=== PATIENT | female | born 1975 | race Caucasian/White ===

== ENCOUNTER 2017-10-14 20:20 | Emergency (ER) | payer OTHER ==
[~2017-10-14] VITALS: Ht 165.1 cm; Wt 68.5 kg
[~2017-10-14 20:20] MED LIST: BENZ100C84 PO; CLON0.5T3 PO; LEVO1TAB33 PO; Ventolin HFA INH
[2017-10-14 20:22] VITALS: TEMP 36.4; Ht 165.1 cm; Wt 68.5 kg
[2017-10-14 20:43] VITALS: O2SAT 100
[2017-10-14] MEDS ORDERED: DiphenhydrAMINE HCL 50 MG/ML VIAL IV STA (21:10)
[2017-10-14] MEDS ORDERED: FAMOTIDINE 20MG/5ML IV PUSH IV STA (21:10)
[2017-10-14] MEDS ORDERED: DEXAMETHASONE **PF** INJ 10 MG/ML VIAL IV ONE (21:15)
--- NOTE | 2017-10-14 21:17 | EMERGENCY ROOM VISIT NOTE ---
History Report prepared by Jaison: Shaun Chilel Under the Supervision of: Dr. Stephanie Manzano M.D. First contact with patient: 20:32 Chief Complaint: ALLERGIC REACTION Stated Complaint: ALLERGIC REACTION History of Present Illness The patient is a 41 year old female who presents to the Emergency Room with complaints of a constant allergic reaction starting earlier today. The patient states that she has been having some lip swelling while working earlier at [employer]. She notes that tonight was her third shift. She states that her first shift she had hives from her abdomen down, though they went away after taking Benadryl. The second shift she had swollen and itchy eyes. Today during her third shift she also had some tingling in her lips, a scratchy throat, and itchiness on the top of her head. The patient states that she has no history of allergic reactions to medications, foods, or seasons. 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 The patient states that she did not eat there tonight, and she states that she recently moved into a new basement, and she states that she has been using new skin drier sheets. She states that she has been on Wellbutrin and Klonopin for a while, and she has not had any changes in her medications. The patient denies any fever, chills, nausea, vomiting, chest pain, and shortness of breath. She notes that she has been under stress recently with a divorce. The patient additionally reports that she had lip fillers a week and a half ago, though she states that she has had them before with no problems. She states that she smokes, and she recently started. Source of History: patient Onset: earlier today Position: lip Quality: other (allergic reaction and swelling) Timing: constant Associated Symptoms: No fevers, No chills, No chest pain, No SOB, No nausea , No vomiting Note: Associated symptoms: scratchy throat, tingling in her lips, and itchy eyes Review of Systems See HPI for pertinent positives & negatives. A total of 10 systems reviewed and were otherwise negative. Past Medical & Surgical Medical Problems: (1) Anxiety State Nos (2) Tobacco Use Disorder Family History Diabetes mellitus Gallbladder disease Heart disease Hypertension Social History Smoking Status: Current Every Day Smoker Alcohol Use: none Marital Status: Housing Status: lives with roommate Occupation Status: employed Current/Historical Medications Scheduled Bupropion HCl (Bupropion HCl Sr), 150 MG PO BID Prednisone (Prednisone), 40 MG PO DAILY Ranitidine Hcl (Zantac), 150 MG PO BID Scheduled PRN Clonazepam (Klonopin), 0.5 MG PO TID PRN for Anxiety Allergies Coded Allergies: No Known Allergies (Unverified Allergy, Unknown, 10/17/04) Physical Exam Vital Signs Date Time Temp Pulse Resp B/P (MAP) Pulse Ox O2 Delivery O2 Flow Rate FiO2 10/14/17 22:46 84 115/75 99 10/14/17 22:09 79 19 109/74 100 Room Air 10/14/17 20:43 100 Room Air 10/14/17 20:39 98 10/14/17 20:28 100 Room Air 10/14/17 20:22 36.4 16 96 131/86 99 Room Air Physical Exam Vital signs reviewed. General: Well-appearing female, in no significant distress. HEENT: No scleral icterus, PERRLA, neck supple. Atraumatic. Upper lip swelling. Posterior oropharynx is clear. Cardiovascular: Regular rate and rhythm, no extra sounds. Pulmonary: Clear to auscultation bilaterally, normal work of breathing. Abdomen: Soft, nontender, nondistended, positive bowel sounds. Musculoskeletal: Atraumatic, no peripheral edema. Neurologic: Patient awake alert and oriented x 3 Skin: Warm, dry, no rash Medical Decision & Procedures Medications Administered Medications (Trade) Dose Ordered Sig/Melvin Route Start Time Stop Time Status Last Admin Dose Admin Diphenhydramine HCl (Benadryl Inj) 50 mg NOW STAT IV 10/14/17 21:10 10/14/17 21:12 DC 10/14/17 21:16 50 MG Dexamethasone Sodium Phosphate (Dexamethasone Inj Pf) 10 mg NOW ONCE IV 10/14/17 21:15 10/14/17 21:16 DC 10/14/17 21:17 10 MG Famotidine (Pepcid 20mg Iv Push) 20 mg ONE STAT IV 10/14/17 21:10 10/14/17 21:12 DC 10/14/17 21:17 20 MG Epinephrine (Epipen) 0.3 mg NOW STAT IM 10/14/17 22:29 10/14/17 22:30 DC 10/14/17 22:46 0.3 MG ED Course 2031: Past medical records reviewed. The patient was evaluated in room A12. A complete history and physical examination was performed. 2109: Famotidine 20mg IV, Benadryl 50mg IV 2114: Dexamethasone Sodium Phosphate 10mg IV 2222: Upon reevaluation, the patient appeared to have improvement of her symptoms. I discussed findings with her. She verbalized agreement of the treatment plan. She was discharged home. 2228: EpiPen 0.3mg IM Medical Decision Differential diagnosis: Etiologies such as allergic reaction, anaphylaxis, urticaria, Shah-Huber syndrome, toxic epidermal necrolysis, erythema multiforme, cellulitis, as well as others were entertained. This pt was evaluated and appeared to be in no distress. IV access was obtained and lab work was drawn. As the pt developed hives a few days ago, itching to the scalp and now upper lip swelling, it seems to be more of a histamine reaction than an angioedema. She does not have medications that would be typical for angioedema. Pt was given IV benadryl, dexamethasone and IV pepcid . She had modest improvement. Pt was educated on an epi pen and given one for home as it is after hours and the allergen is not identified. Pt was d/c with Rx for prednisone burst and zantac BID if needed. She will continue benadryl for allergic symptoms. Pt was encouraged to keep a log of events prior to a reaction, noting environmental and food/drinks. She will f/u with PCP this week and return to the ED for worsening of symptoms or any medical concerns. Medication Reconcilliation Current Medication List: was personally reviewed by me Blood Pressure Screening Patient's blood pressure: Normal blood pressure Impression Primary Impression: Allergic reaction Scribe Attestation The scribe's documentation has been prepared under my direction and personally reviewed by me in its entirety. I confirm that the note above accurately reflects all work, treatment, procedures, and medical decision making performed by me. Departure Information Dispostion Home / Self-Care Prescriptions Ranitidine Hcl (ZANTAC) 150 Mg Tab 150 MG PO BID, #30 TAB Prov: Stephaine Manzano M.D. 10/14/17 Prednisone (Prednisone) 20 Mg Tab 40 MG PO DAILY, #8 TAB Prov: Stephanie Manzano M.D. 10/14/17 Referrals Radha Villatoro D.O. (PCP) Forms HOME CARE DOCUMENTATION FORM, IMPORTANT VISIT INFORMATION Patient Instructions [facility] Additional Instructions Diagnosis: Allergic reaction Benadryl 25-50 mg every 6 hours as needed for allergic symptoms. Prednisone 40 mg daily for the next 4 days. Zantac 150 mg twice daily as needed for allergic symptoms. EpiPen as directed for severe allergic reaction. Follow-up with your physician this week for reevaluation. Return to the ER for worsening of symptoms or any medical concerns.
[2017-10-14] MEDS ORDERED: WLLSR150 PO (21:30)
[2017-10-14] MEDS ORDERED: EPINEPHRINE ADULT AUTO-INJECT 0.3 MG SYR IM STA (22:29)
[2017-10-14] MEDS ORDERED: RANI150T3 PO (22:29)
[2017-10-14] MEDS ORDERED: PRED20TA PO (22:29)
[2017-10-14 22:46] VITALS: BP 115/75; PULSE 84; O2SAT 99
== END 2017-10-14 22:48 | disposition home or self-care (01) ==
LOC: C.EDB 20:21 → C.EDA 22:48
DX: T78.40XA Allergy, unspecified, initial encounter (principal); X58.XXXA Exposure to other specified factors, initial encounter; F41.9 Anxiety disorder, unspecified; F17.210 Nicotine dependence, cigarettes, uncomplicated; Z83.3 Family history of diabetes mellitus; Z83.79 Family history of other diseases of the digestive system; Z82.49 Family history of ischemic heart disease and other diseases of the circulatory system; Z79.899 Other long term (current) drug therapy